=== PATIENT | female | born 1935 | race Caucasian/White ===

== ENCOUNTER 2017-03-08 05:40 | Inpatient (IN) | payer MEDICARE, OTHER ==
[2017-02-23 20:32] LABS: BASOPHILS 0.5 %; BASOPHILS ABSOLUTE 0.03 10/3/uL (0.0-0.16); EOSINOPHILS 4.7 %; HEMOGLOBIN 10.6 g/dL (12.0-16.0); IMMATURE GRANULOCYTES 0.3 %; IMMATURE GRANULOCYTES ABSOLUTE 0.02 10/3/uL (0.0-0.11); LYMPHOCYTES 18.6 %; LYMPHOCYTES ABSOLUTE 1.19 10/3/uL (0.67-4.30); MEAN CORPUS HGB CONC 30.3 g/dL (32.0-36.0); MEAN CORPUSCULAR HEMOGLOB 26.8 pg (26.0-34.0); MEAN CORPUSCULAR VOLUME 88.6 fL (80-100); MEAN PLATELET VOLUME 8.6 fL (9.2-13.0); MONOCYTES 5.9 %; MONOCYTES ABSOLUTE 0.38 10/3/uL (0.21-1.20); NEUTROPHILS ABSOLUTE 4.49 10/3/uL (2.02-8.40); RBC DISTRIBUTION WIDTH 15.4 % (12.0-16.0); RED CELL COUNT 3.95 10/6/uL (4.0-5.6); WHITE BLOOD CELLS 6.4 10/3/uL (4.5-10.5)
[2017-02-23 20:36] LABS: MANUAL DIFF NO %; PLATELET COUNT 302 10/3/uL (150-400)
[2017-02-23 20:38] LABS: ASCORBIC ACID (UR NOT ORDER) NEG (NEG); BILIRUBIN, URINE NEGATIVE (NEG); KETONE, URINE NEGATIVE (NEG); LEUKOCYTE ESTERASE(NOT OR NEG (NEG); WBC (NOT ORDERED) (RFLEX) < 1 (0-5)
[2017-02-23 20:45] LABS: INTERNATIONAL NORMAL RATI 1.8 UNITS (-); PROTIME (NOT ORD) 21.1 SEC (12.0-14.5)
[2017-02-23 20:49] LABS: ALBUMIN 3.2 G/DL (3.5-5.0); CALCIUM, SERUM 8.1 MG/DL (8.5-10.4); CHLORIDE, SERUM 100 MMOL/L (96-112); CO2 (CARBON DIOXIDE) 33 MMOL/L (24-34); CREATININE 1.11 MG/DL (0.55-1.02); GFR AFRICAN AMERICAN 54 ML/MIN (>=60); GFR NON AFRICAN AMERICAN 46 ML/MIN (>=60); GLOBULIN 3.3 G/DL (2.5-4.1); GLUCOSE, SERUM 79 MG/DL (60-99); POTASSIUM, SERUM 3.8 MMOL/L (3.5-5.3); SGOT(AST) 12 U/L (5-40); SGPT(ALT) 12 U/L (5-65); SODIUM, SERUM 141 MMOL/L (135-148); TOTAL BILIRUBIN 0.5 MG/DL (0-1.2); TOTAL PROTEIN 6.5 G/DL (6.0-8.5)
[2017-02-23 20:50] LABS: ALKALINE PHOSPHATASE 132 U/L (45-117); BUN (BLOOD UREA NITROGEN) 15 MG/DL (6-23)
--- NOTE | ~2017-03-08 | OP ---
Record Of Operation [facility] [address] [place]. [address] NAME: MARLENY CALIXTO : 35 STATUS : ADM IN PAT#: [id number] AGE: 82 ADM/REG DATE : 03/08/17 MR#: [id number] REPORT SERV DATE: 03/09/17 DICTATED BY: SUE TRAVIS DATE: 03/09/17 REPORT STATUS : Draft TRANSCRIBED BY: ADDIS DATE: 03/09/17 DATE OF PROCEDURE: 03/08/2017 PREOPERATIVE DIAGNOSIS: Severe bilateral knee degenerative joint disease. POSTOPERATIVE DIAGNOSIS: Severe bilateral knee degenerative joint disease. OPERATION: Bilateral posterior stabilized total knee replacement, cemented. SIDE: Right and left. SIZE: See chart. ANESTHESIA: See chart. ESTIMATED BLOOD LOSS: About 10 mL each knee. TOURNIQUET TIME: Approximately 1 hour and 10 minutes. COMPLICATIONS: None. SPECIMENS: Articular surfaces. PROCEDURE IN DETAIL: The patient was appropriately identified and marked. The operative side agreed with the consent form and it was checked by all members of the surgical team. The patient was taken to the operating room and anesthesia was induced per the anesthesiologist. The patient was carefully transferred to the operating table without incident. The patient received appropriate prophylactic antibiotics and a Cason catheter was placed in the standard sterile technique. The patient was then carefully positioned, padded, prepped and draped in the normal sterile fashion. The operative leg had been appropriately identified and checked by all members of the operating team against the consent form and found to be the correct limb. The patient's lower extremity was then exsanguinated with an Bala wrap and a tourniquet was inflated to 350 mmHg. Sharp dissection was carried out through a straight midline longitudinal incision and electrocautery through the fat. Sharp quad splitting approach was carried out between about the medial 10 percent of the tendon and the lateral 90 percent of the tendon and down around the medial aspect of the patella and then 1 cm medial to the tibial tubercle. The patella was carefully everted and the posterior fat pad was excised and gentle MCL elevation was carried out off the proximal medial tibia subperiosteally. IM guide was placed in the distal femur after using the appropriate drill. The distal femoral cutting guide was held with 2 pins and the distal cut made. Meniscal fragments and the ACL and the PCL were excised with electrocautery, carefully staying anterior to the posterior fat pad. The proximal tibial alignment guide was set appropriately and the proximal tibial cut made. Spacer block verified full extension with excellent mediolateral balance. Sizing guide was used to place 2 drill holes in the distal femur and the four-in-one cutting block was then placed, impacted and checked Record Of Operation [facility] [address] [place]. [address] NAME: MARLENY CALIXTO : 35 STATUS : ADM IN PAT#: [id number] AGE: 82 ADM/REG DATE : 03/08/17 MR#: [id number] REPORT SERV DATE: 03/09/17 DICTATED BY: SUE TRAVIS DATE: 03/09/17 REPORT STATUS : Draft TRANSCRIBED BY: ADDIS DATE: 03/09/17 to be sure it would not notch with an donaldo wing and it was held with 2 pins. The anterior cut, posterior cut, anterior chamfer and posterior chamfer cuts were made. The pins were removed and the block was removed. A posterior release was carried out with a curved 3/4 inch osteotome staying right on the bone posteriorly. The box-cut guide was then placed, impacted and held with 2 pins and a reciprocating saw was used to cut out the box. With the trial components in place, there was excellent medial/lateral balance. The patella was then measured with a caliper, cut first with an oscillating saw and then reamed with a patella reamer. With the trial patella in place, there was excellent patellar tracking. Rotation was marked on the tibia and the tibia prepared with a drill and stamp chisel. All surfaces were then copiously irrigated with pulsatile lavage, carefully dried and then vacuum-mixed cement was pressurized with a cement gun in a doughy phase. The tibial component was placed, impacted and excess cement was removed. The cement was then pressurized in the femur and placed on the posterior runners of the femoral component, which was placed, impacted and excess cement removed and the knee was brought out into extension on a trial spacer. The cement was then pressurized in the patella. Patellar component was then placed, clamped and excess cement was removed. Once all cement was hardened, the knee was taken through range of motion. Further extruded cement was removed with a small osteotome. Then based on the trial inserts, we decided on the actual insert, which was placed in the standard fashion and held with a locking mechanism. The knee was then copiously irrigated and then closed in a layered fashion over a medium Hemovac drain superolaterally with interrupted #1 in the deep fascia, 2-0 subcutaneous and ursula in the skin. The wounds were dressed sterilely and the tourniquet was deflated. After completion of the first knee and discussion with the anesthesiologist, all parameters were acceptable and we decided to proceed with the second knee. Same procedure as that dictated above was carried out on the contralateral knee. The contralateral leg was again appropriately identified and checked by all members of the operating team against the consent form and found to be the correct limb. The patient's lower extremity was then exsanguinated with an Bala wrap and a tourniquet was inflated to 350 mmHg. Sharp dissection was carried out through a straight midline longitudinal incision and electrocautery through the fat. Sharp quad splitting approach was carried out between about the medial 10 percent of the tendon and the lateral 90 percent of the tendon and down around the medial aspect of the patella and then 1 cm medial to the tibial tubercle. The patella was carefully everted and the posterior fat pad was excised and gentle MCL elevation was carried out off the proximal medial tibia subperiosteally. IM guide was placed in the distal femur after using the appropriate drill. The distal femoral cutting guide was held with 2 pins and the distal cut made. Meniscal fragments and the ACL and the PCL were excised with electrocautery, carefully staying anterior to the posterior fat pad. The proximal tibial alignment guide was set appropriately and the proximal tibial cut made. Spacer block verified full extension with excellent mediolateral balance. Sizing guide was used to place 2 drill holes in the distal femur and the four-in-one cutting block was then placed, impacted and checked to be sure it would not notch with an donaldo wing and it was held with 2 pins. The anterior cut, posterior cut, anterior chamfer and posterior chamfer cuts were made. The pins were removed and the block was removed. A posterior release was carried out with a curved 3/4 inch osteotome staying right on the bone posteriorly. The box cut guide was then placed, impacted and held with 2 pins and a reciprocating saw was used to Record Of Operation [address] [place]. [address] NAME: MARLENY CALIXTO: 35 STATUS : ADM IN PAT#: [id number] AGE: 82 ADM/REG DATE : 03/08/17 MR#: [id number] REPORT SERV DATE: 03/09/17 DICTATED BY: SUE TRAVIS DATE: 03/09/17 REPORT STATUS : Draft TRANSCRIBED BY: MODL DATE: 03/09/17 cut out the box. With the trial components in place, there was excellent medial/lateral balance. The patella was then measured with a caliper, cut first with an oscillating saw and then reamed with a patella reamer. With the trial patella in place, there was excellent patellar tracking. Rotation was marked on the tibia and the tibia prepared with a drill and stamp chisel. All surfaces were then copiously irrigated with pulsatile lavage, carefully dried and then vacuum-mixed cement was pressurized with a cement gun in a doughy phase. The tibial component was placed, impacted and excess cement was removed. The cement was then pressurized in the femur and placed on the posterior runners of the femoral component, which was placed, impacted and excess cement removed and the knee was brought out into extension on a trial spacer. The cement was then pressurized in the patella. Patellar component was then placed, clamped and excess cement was removed. Once all cement was hardened, the knee was taken through range of motion. Further extruded cement was removed with a small osteotome. Then based on the trial inserts, we decided on the actual insert, which was placed in the standard fashion and held with a locking mechanism. The knee was then copiously irrigated and then closed in a layered fashion over a medium Hemovac drain superolaterally with interrupted #1 in the deep fascia, 2-0 subcutaneous and ursula in the skin. The wounds were dressed sterilely and the tourniquet was deflated. WTB/MODL Valeria Travis M.D. / [id number] CC: Rei Alberto M.D.
[~2017-03-08 05:40] MED LIST: *UNABLE1; ADVAIR250 INH; APRES25 PO; ATEN25 PO; ATEN50 PO; ATV.5 PO; AUG875 PO; BIOFREEZE TOPICAL; BUM1 PO; C1 PO; C25 PO; CARDCD120 PO; CLARIT10 PO; COUMADIN3 MG PO; COUMADIN4 MG PO; CYANO1000T PO; DUONEB INH; FLEX PO; FLORASTOR250 MG PO; HYDROCHLOROT12.5 MG PO; ISOPTINSR PO; K500 PO; KDUR20 PO; KLOR-CON 1010 MEQ PO; KLOR-CON M1010 MEQ PO; KLOR-CON M2020 MEQ PO; L20 PO; L40 PO; L80 PO; LASIX PO; LEXAPRO10 PO; LIPITOR10 PO; LOP25 PO; LOVENOX1C; MIRALAX POWDER1 PKT PO; MIRAPEX1 MG PO; NEUR100 PO; NEUR300 PO; NEURONTIN; NEXIUM40 PO; NITROSTAT0.3 MG SL; NITROSTAT0.4 MG SL; OTC EYE DROP OPH; OTC PROBIOTIC PO; P20 PO; PCET OR; PROAIR HFA INH; REM15 PO; REMERON30 MG PO; SINGULAIR1 PO; SPIRIVA INH; SPIRO25 PO; TEARS NATURA OPH; TESS PO; ULTRAM50 PO; VIT B-SIX 50 MG50 MG PO; VITAMIN B6 PO; VITAMIN D OTC PO; VOLTAREN1 % TOP; Z100 PO; ZOFRAN4 OR; ZYRTEC ALLGY10 MG PO
[2017-03-08 06:34] LABS: INTERNATIONAL NORMAL RATI 1.3 UNITS (-)
[2017-03-08 06:35] LABS: PROTIME (NOT ORD) 16.2 SEC (12.0-14.5)
[2017-03-08 17:43] LABS: HEMATOCRIT 27.2 % (36.0-48.0); HEMOGLOBIN 8.3 g/dL (12.0-16.0)
[2017-03-09 05:16] LABS: HEMATOCRIT 25.8 % (36.0-48.0)
[2017-03-09 05:18] LABS: INTERNATIONAL NORMAL RATI 1.4 UNITS (-); PROTIME (NOT ORD) 17.4 SEC (12.0-14.5)
[2017-03-09 05:33] LABS: CALCIUM, SERUM 7.6 MG/DL (8.5-10.4); CHLORIDE, SERUM 106 MMOL/L (96-112); CREATININE 0.96 MG/DL (0.55-1.02); GFR AFRICAN AMERICAN 64 ML/MIN (>=60); GFR NON AFRICAN AMERICAN 55 ML/MIN (>=60); POTASSIUM, SERUM 4.5 MMOL/L (3.5-5.3); SODIUM, SERUM 143 MMOL/L (135-148)
[2017-03-09 05:42] LABS: BUN (BLOOD UREA NITROGEN) 23 MG/DL (6-23); CO2 (CARBON DIOXIDE) 27 MMOL/L (24-34); GLUCOSE, SERUM 118 MG/DL (60-99)
[2017-03-10 06:21] LABS: BASOPHILS 0 %; EOSINOPHILS 0.3 %; EOSINOPHILS ABSOLUTE 0.02 10/3/uL (0.0-0.53); HEMATOCRIT 27.9 % (36.0-48.0); HEMOGLOBIN 8.8 g/dL (12.0-16.0); IMMATURE GRANULOCYTES 0.7 %; IMMATURE GRANULOCYTES ABSOLUTE 0.05 10/3/uL (0.0-0.11); LYMPHOCYTES 12.5 %; LYMPHOCYTES ABSOLUTE 0.96 10/3/uL (0.67-4.30); MEAN CORPUS HGB CONC 31.5 g/dL (32.0-36.0); MEAN CORPUSCULAR VOLUME 88.9 fL (80-100); MEAN PLATELET VOLUME 9.1 fL (9.2-13.0); MONOCYTES 8.5 %; MONOCYTES ABSOLUTE 0.65 10/3/uL (0.21-1.20); NEUTROPHILS ABSOLUTE 5.97 10/3/uL (2.02-8.40); RBC DISTRIBUTION WIDTH 16.3 % (12.0-16.0); WHITE BLOOD CELLS 7.7 10/3/uL (4.5-10.5)
[2017-03-10 06:25] LABS: INTERNATIONAL NORMAL RATI 1.8 UNITS (-)
[2017-03-10 06:26] LABS: PROTIME (NOT ORD) 20.8 SEC (12.0-14.5)
[2017-03-10 06:28] LABS: MANUAL DIFF NO %; PLATELET COUNT 164 10/3/uL (150-400); RED CELL COUNT 3.14 10/6/uL (4.0-5.6)
[2017-03-10 06:31] LABS: BUN (BLOOD UREA NITROGEN) 26 MG/DL (6-23); CHLORIDE, SERUM 101 MMOL/L (96-112); CO2 (CARBON DIOXIDE) 31 MMOL/L (24-34); CREATININE 1.03 MG/DL (0.55-1.02); GFR AFRICAN AMERICAN 59 ML/MIN (>=60); GFR NON AFRICAN AMERICAN 51 ML/MIN (>=60); GLUCOSE, SERUM 117 MG/DL (60-99); POTASSIUM, SERUM 4.3 MMOL/L (3.5-5.3); SODIUM, SERUM 140 MMOL/L (135-148)
[2017-03-11 05:28] LABS: INTERNATIONAL NORMAL RATI 1.9 UNITS (-); PROTIME (NOT ORD) 21.8 SEC (12.0-14.5)
[2017-03-11 05:39] LABS: BASOPHILS 0.1 %; BASOPHILS ABSOLUTE 0.01 10/3/uL (0.0-0.16); EOSINOPHILS 7.6 %; EOSINOPHILS ABSOLUTE 0.55 10/3/uL (0.0-0.53); IMMATURE GRANULOCYTES 0.8 %; IMMATURE GRANULOCYTES ABSOLUTE 0.06 10/3/uL (0.0-0.11); LYMPHOCYTES 19.2 %; LYMPHOCYTES ABSOLUTE 1.38 10/3/uL (0.67-4.30); MEAN CORPUSCULAR HEMOGLOB 28.2 pg (26.0-34.0); MEAN CORPUSCULAR VOLUME 90.9 fL (80-100); MEAN PLATELET VOLUME 9.2 fL (9.2-13.0); MONOCYTES 5.7 %; MONOCYTES ABSOLUTE 0.41 10/3/uL (0.21-1.20); NEUTROPHILS 66.6 %; NEUTROPHILS ABSOLUTE 4.78 10/3/uL (2.02-8.40); PLATELET COUNT 186 10/3/uL (150-400); RBC DISTRIBUTION WIDTH 16.6 % (12.0-16.0); RED CELL COUNT 3.19 10/6/uL (4.0-5.6); WHITE BLOOD CELLS 7.2 10/3/uL (4.5-10.5)
[2017-03-11 05:40] LABS: MANUAL DIFF NO %
[2017-03-11 05:50] LABS: CALCIUM, SERUM 7.8 MG/DL (8.5-10.4); CHLORIDE, SERUM 102 MMOL/L (96-112); CO2 (CARBON DIOXIDE) 33 MMOL/L (24-34); CREATININE 1.45 MG/DL (0.55-1.02); GFR AFRICAN AMERICAN 39 ML/MIN (>=60); GFR NON AFRICAN AMERICAN 33 ML/MIN (>=60); GLUCOSE, SERUM 99 MG/DL (60-99); POTASSIUM, SERUM 4.6 MMOL/L (3.5-5.3); SODIUM, SERUM 142 MMOL/L (135-148)
[2017-03-11 05:58] LABS: BUN (BLOOD UREA NITROGEN) 30 MG/DL (6-23)
== END 2017-03-11 14:39 | DRG 462 ==
LOC: SDC/OF 05:40 → PACU 10:46 → 3SO 12:48
PROVIDERS: Specialist
PROC: 0SRC0J9 Replacement of Right Knee Joint with Synthetic Substitute, Cemented, Open Approach (ICD-10-PCS; 2017-03-08)
PROC: 30233N1 Transfusion of Nonautologous Red Blood Cells into Peripheral Vein, Percutaneous Approach (ICD-10-PCS; 2017-03-08)
PROC: 0SRD0J9 Replacement of Left Knee Joint with Synthetic Substitute, Cemented, Open Approach (ICD-10-PCS; principal; 2017-03-08 07:45)
DX: M17.0 Bilateral primary osteoarthritis of knee (principal); D62 Acute posthemorrhagic anemia; I10 Essential (primary) hypertension; E78.5 Hyperlipidemia, unspecified; J45.909 Unspecified asthma, uncomplicated; K21.9 Gastro-esophageal reflux disease without esophagitis; Z86.718 Personal history of other venous thrombosis and embolism; Z79.01 Long term (current) use of anticoagulants; I12.9 Hypertensive chronic kidney disease with stage 1 through stage 4 chronic kidney disease, or unspecified chronic kidney disease; N18.9 Chronic kidney disease, unspecified; G47.33 Obstructive sleep apnea (adult) (pediatric); F41.9 Anxiety disorder, unspecified
CPT/HCPCS: 36415; 71020-PO; 80048; 80053; 81001; 82962; 85014; 85018; 85025; 85610; 86850; 86900; 86901; 86920; 87641; 88305; 88311; 93005; 94640; 97110-GP; 97116-GP; 97162-GP; 97165-GO; A9270-GY; C1776; G8987-CK-GO; G8988-CJ-GO; J0690; J1885; J1940; J2250; J2274; J2370; J2405; J2710; J2795; J3010; J3370; P9016; P9045

== ENCOUNTER 2017-05-06 13:08 | Inpatient (IN) | payer MEDICARE, OTHER ==
--- NOTE | ~2017-05-06 | DS ---
Discharge Summary [place] [id number] [facility] [place]. [address] NAME: MARLENY CALIXTO : 35 STATUS : DIS IN PAT#: [id number] AGE: 82 ADM/REG DATE : 05/06/17 MR#: [id number] REPORT SERV DATE: 05/10/17 DICTATED BY: SAUD CHASE DATE: 05/10/17 REPORT STATUS : Draft TRANSCRIBED BY: MODRissa DATE: 05/10/17 ADMISSION DATE: 05/06/2017 DISCHARGE DATE: 05/10/2017 DISCHARGE DIAGNOSES: Include: 1. Right patellar fracture status post fall, status post repair of said patellar fracture on 05/07/2017. 2. Hypertension. 3. Chronic diastolic heart failure. 4. History of pulmonary embolus and deep vein thrombosis. 5. History of aortic stenosis. 6. History of chronic obstructive pulmonary disease and obstructive sleep apnea, on current CPAP therapy. 7. History of dementia, on Aricept. DISCHARGE MEDICINES: As follows: Flexeril 10 mg twice a day, Cardizem 120 mg at bedtime, Colace 100 mg twice a day, Aricept 5 mg at bedtime, Zantac 300 mg at bedtime, Lasix 40 mg daily, folic acid 1 mg daily, ferrous sulfate 300 mg p.o. twice a day, Neurontin 300 mg at bedtime and 100 mg in the morning, Remeron 7.5 mg at bedtime, Singulair 10 mg daily, MiraLAX one packet daily, potassium chloride 20 mEq p.o. daily, Aldactone 25 mg daily, Coumadin 2 mg daily, Spiriva one capsule inhaled daily, Mylanta p.r.n., Dulcolax 10 mg suppository p.r.n. for constipation, Ativan 0.5 mg twice a day p.r.n. for anxiety, Cocoa 7.5/325 one tablet every four hours p.r.n. for pain, milk of magnesia p.r.n., nitroglycerin 0.4 mg sublingual p.r.n. for chest pain, Zofran 4 mg every four hours p.r.n. for nausea, MiraLAX one packet twice a day p.r.n., and DuoNeb inhaled q.4 hours p.r.n. for shortness of breath, Mirapex 1 mg three tablets two hours before bedtime. HISTORY OF PRESENT ILLNESS: A pleasant 82-year-old white female, who presented after a fall and right knee pain. Please see the initial H and P of Dr. Olga Sapp as the patient admitted to the Hospitalist Service for further evaluation and treatment. CLIENT RELATIONSHIP MANAGER DURING THIS ADMISSION: Include Orthopedic Surgery, Dr. Joao Baker. PROCEDURE AND IMAGING DURING THIS ADMISSION: Include a CT of the pelvis that showed subtle nondisplaced fracture of the right hip. Right knee x-ray confirmed an acute transverse fracture through the bony patella with associated hemorrhagic effusion, but pelvis CT showed no evidence of an occult fracture and then on 05/07/2017, surgical open repair of patellar fracture. EVALUATION IN HOSPITAL COURSE: The patient was initially seen by Dr. Loan Boyd after admission and by Orthopedic Surgery, Dr. Baker who performed the surgery and the patient has recovered well from that. She was seen by Physical therapy, who recommended nursing home facility and discharge for continued rehab. She has done well from a medical standpoint. Continued to use her CPAP during the evening and continued on her home medication regimen. She has been afebrile. Blood pressures have been stable. Lab work has been within normal limits as well other than some expected postoperative anemia. The Discharge Summary [address] [address] NAME: MARLENY CALIXTO : 35 STATUS : DIS IN PAT#: [id number] AGE: 82 ADM/REG DATE : 05/06/17 MR#: [id number] REPORT SERV DATE: 05/10/17 DICTATED BY: SAUD CHASE DATE: 05/10/17 REPORT STATUS : Draft TRANSCRIBED BY: MODRissa DATE: 05/10/17 patient was approved for [facility] and transferred there on 05/10/2017 with the above medication regimen, and she will follow up with her primary care, Dr. 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 Bliss. DICTATED BY: Saud Chase NP [facility] [place]/MODL Saud Chase NP / [id number] CC: MD Meng Gonzalez M.D.
--- NOTE | ~2017-05-06 | OP ---
Record Of Operation [facility] [address] [place]. [address] NAME: MARLENY CALIXTO : 35 STATUS : DIS IN PAT#: [id number] AGE: 82 ADM/REG DATE : 05/06/17 MR#: [id number] REPORT SERV DATE: 05/11/17 DICTATED BY: SUE TRAVIS DATE: 05/10/17 REPORT STATUS : Draft TRANSCRIBED BY: MODL DATE: 05/10/17 DATE OF PROCEDURE: 05/07/2017 PREOPERATIVE DIAGNOSIS: Right periprosthetic patellar fracture. POSTOPERATIVE DIAGNOSIS: Right periprosthetic patellar fracture. PROCEDURE: Open reduction and internal fixation/tendon repair/partial patellectomy. TRAILER SECTIONS ASSEMBLER: See chart. DESCRIPTION OF PROCEDURE: The patient was taken to the operating room and placed supine on the table in normal fashion without incident. General anesthetic was induced per the anesthesiologist. The patient was carefully positioned, padded, prepped, and draped in normal sterile fashion. Right lower extremity exsanguinated and tourniquet was inflated to 350. Sharp dissection was made through the old incision with electrocautery through the fat. Dissection was then down carefully onto the patella. The distal patellar fragments were felt to be too small and too comminuted for repair. Therefore, I debrided most of that back making it more of a patellar tendon reattachment. The patellar component was still overall attached to the proximal fragment. Four legs of #5 FiberWire were left after I wove #2 FiberWires down into the tendon. These four legs were passed through three holes using a drill tip ACL suture passer longitudinally. This gave excellent fixation. They were tied over each other. This was further oversewn with FiberWire. Retinaculum appeared in satisfactory fashion. The wound was irrigated, closed in layered fashion, dressed sterilely. The patient was awakened and taken to the postanesthesia care unit without incident. COMPLICATIONS: None. SPECIMENS: None. ESTIMATED BLOOD LOSS: Trace. WTB/MODL Valeria Travis M.D. / [id number] CC: MD Meng Gonzalez M.D.
--- NOTE | ~2017-05-06 | HP ---
History And Physical [address] [place]. [address] NAME: MARLENY CALIXTO : 35 STATUS : ADM IN PAT#: [id number] AGE: 82 ADM/REG DATE : 05/06/17 MR#: [id number] REPORT SERV DATE: 05/07/17 DICTATED BY: SUE BAKER DATE: 05/07/17 REPORT STATUS : Draft TRANSCRIBED BY: MODRissa DATE: 05/07/17 DATE OF ADMISSION: 05/06/2017 CHIEF COMPLAINT: Right knee pain. HISTORY: An 82-year-old female, status post bilateral total knee arthroplasty several months ago, lost her balance, fell, and fractured her right patella. She denies pain or injury elsewhere. It sounds she fell directly on it in a flexed position. ALLERGIES: NONSTEROIDAL ANTI-INFLAMMATORY AGENTS. MEDICATIONS: See chart. PAST MEDICAL HISTORY: Restless legs syndrome, full dentures, hypercholesterolemia, hypertension, pulmonary embolism, asthma, arthritis, ulcer history, CKD, anxiety. PAST SURGICAL HISTORY: Cholecystectomy, hysterectomy, bilateral cataracts, "bone spurs" in right ankle, colonoscopy, fatty tumor back in 1999, bilateral total knees in February this year. SOCIAL HISTORY: 35 years of cigarettes, but she quit. No alcohol or illicit drug use. FAMILY HISTORY: No anesthetic complications. REVIEW OF SYSTEMS: As above. PHYSICAL EXAMINATION: GENERAL: She is alert and oriented x3, in no apparent distress. HEENT: Atraumatic, normocephalic. NECK: Supple. CHEST: Symmetric, nontender. LUNGS: Per AA evaluation. CV: Regular. ABDOMEN: Soft. No mass. EXTREMITIES: Both upper extremities and left lower extremity, no acute trauma. Minimal soreness left shoulder. Right knee with the anterior knee swelling and pain, and she is unable to resist gravity and unable to hold a straight leg raise. X-RAYS: With transfers, inferior pole, right patella fracture. ASSESSMENT: Right patella fracture, inferior pole. PLAN: ORIF versus revision versus partial patellectomy. We discussed risks, benefits, etc. She wishes to proceed. History And Physical [address] [place]. [address] NAME: MARLENY CALIXTO : 35 STATUS : ADM IN PAT#: [id number] AGE: 82 ADM/REG DATE : 05/06/17 MR#: [id number] REPORT SERV DATE: 05/07/17 DICTATED BY: SUE BAKER DATE: 05/07/17 REPORT STATUS : Draft TRANSCRIBED BY: MODL DATE: 05/07/17 WTB/MODL Valeria Baker M.D. / [id number] CC: Rei Garcia M.D.
--- NOTE | ~2017-05-06 | HP ---
History And Physical [facility] [address] [place]. [address] NAME: MARLENY CALIXTO : 35 STATUS : ADM Desiree PAT#: [id number] AGE: 82 ADM/REG DATE : 05/06/17 MR#: [id number] REPORT SERV DATE: 05/06/17 DICTATED BY: OLGA BABIN DATE: 05/06/17 REPORT STATUS : Draft TRANSCRIBED BY: ADDIS DATE: 05/06/17 DATE OF ADMISSION: 05/06/2017 CHIEF COMPLAINT: Status post accidental fall with right knee pain and right hip pain today. This is a very pleasant 82 years old female. She does have a history of hypertension, history of diastolic CHF, history of aortic stenosis, morbidly obese, anemia of chronic disease, history of obstructive sleep apnea on CPAP, prior history of DVT and PE on chronic anticoagulation, history of GERD, depression, anxiety, restless legs syndrome, that she has had recently in February bilateral knee replacement performed by Dr. Baker. She was at home using her walker. She woke up this morning, she went to prepare her breakfast and after that because she has some unsteady gait, she used her walker, she put her hand on her walker and accidentally she lost her balance and she fell on the right hip and the right knee. In the meantime, her caregiver was in her way into the patient's room, actually at that time, her neighbors were able to put her in a chair but she was not able to walk after that and she was complaining of significant right knee pain as well as right hip pain. As a result, the patient has been brought to [facility]. She says she has not had any presyncopal or syncopal episodes. She was aware of what was happening. She did not have any chest pain or increasing shortness of breath. No PND. No orthopnea. She did not have any nausea or vomiting. No diarrhea or constipation. She is having chronic lymphedema in bilateral lower extremities. She has been undergoing physical therapy. The patient has been evaluated in the emergency room and after initial evaluation, Hospitalist Service has been asked for admission, further evaluation, and treatment. PAST MEDICAL HISTORY: Significant for hypertension, diastolic dysfunction with possible congestive heart failure, probable aortic stenosis, degenerative joint disease, osteoarthritis, anemia of chronic disease, morbid obesity, history of diverticulitis, history of obstructive sleep apnea on CPAP, history of COPD, asthma on prior DVT and PE, history of hyperlipidemia, depression, and anxiety, history of GERD, and history of restless legs syndrome. PAST SURGICAL HISTORY: Includes cholecystectomy, hysterectomy, and bilateral knee replacement. ALLERGIES: SHE IS ALLERGIC TO NSAIDS AND ALSO HYDROCODONE. HOME MEDICATIONS: Home medications include 1. Cardizem. 2. Cyclobenzaprine. 3. Colace. 4. Aricept. 5. Lexapro. 6. Lasix. 7. Gabapentin. 8. Lorazepam. 9. Montelukast. History And Physical [address] [address] NAME: MARLENY CALIXTO : 35 STATUS : ADM Desiree PAT#: [id number] AGE: 82 ADM/REG DATE : 05/06/17 MR#: [id number] REPORT SERV DATE: 05/06/17 DICTATED BY: OLGA BABIN DATE: 05/06/17 REPORT STATUS : Draft TRANSCRIBED BY: ADDIS DATE: 05/06/17 10.Mirtazapine. 11.Multivitamin. 12.MiraLAX. 13.Potassium. 14.Spironolactone. 15.Spiriva. 16.Zofran. 17.Albuterol. 18.Mucinex. 19.Coumadin. FAMILY HISTORY: Significant for hypertension and cancer. SOCIAL HISTORY: Lives with the family. No tobacco. No alcohol. No IV drugs. REVIEW OF SYSTEMS: 14-point review of systems has been obtained and pertinent positives has been listed into the history of present illness, otherwise, negative except those underlying above. PHYSICAL EXAMINATION: OBJECTIVE: VITAL SIGNS: The patient currently is afebrile. Blood pressure 145/69, heart rate 72, respiratory rate 16, and saturating 98% on room air. GENERAL: She is a very pleasant, well-developed, well-nourished female, somewhat anxious, in no acute distress. She is alert and oriented x3. Nonfocal. She follows commands appropriately. HEENT: Shows pupils equal, round, and reactive to light. Extraocular movements intact. NECK: No JVD. No lymphadenopathy. No thyromegaly appreciated. CHEST: Eval shows bilateral air entry. Clear anteroposterior. No wheezes, crackles, or rhonchi appreciated. CARDIOVASCULAR: She has regular rate and rhythm. S1, S2 positive. No S3, no S4. There is a 2/6 systolic murmur of the right upper on the left upper intercostal space and a mitral regurgitation murmur at the apex. ABDOMEN: Soft, obese. Nontender. No guarding. No rebound. EXTREMITIES: No clubbing or cyanosis. Mild pedal edema. NEUROLOGIC: She is alert and oriented x3. Nonfocal. She does follow commands appropriately. Gait could not be assessed. LABORATORY DATA: Labs from today include sodium of 141, potassium 4.3, chloride 106, CO2 of 29, BUN 18, creatinine 1.01, glucose is 97, and calcium is 8. Her total protein is 6.4, albumin 2.7, globulin 3.7, albumin to globulin ratio 0.7, her total bilirubin is 0.6, alkaline phosphatase 108, ALT 11, and AST 24. Her white count is 5.5, hemoglobin 10, hematocrit 32.5, and platelets are 193. UA has been negative and there is an x-ray of the right knee which has shown acute transverse fracture through the bony patella with associated nonhemorrhagic effusion as well as there are some subtle changes on the right hip; recommendation for a CT scan. ASSESSMENT AND PLAN: History And Physical [address] [address] NAME: MARLENY CALIXTO : 35 STATUS : ADM Desiree PAT#: [id number] AGE: 82 ADM/REG DATE : 05/06/17 MR#: [id number] REPORT SERV DATE: 05/06/17 DICTATED BY: OLGA BABIN DATE: 05/06/17 REPORT STATUS : Draft TRANSCRIBED BY: MODRissa DATE: 05/06/17 1. This is a very pleasant 82 years old female status post fall with right knee patella fracture. 2. Questionable right hip fracture. 3. History of chronic obstructive pulmonary disease. 4. Obstructive sleep apnea, on CPAP. 5. Diastolic dysfunction. 6. Chronic lymphedema. 7. History of DVT, PE on Coumadin anticoagulation. 8. Hypertension. 9. Obesity. PLAN: 1. The patient is going to be admitted to Hospitalist Service. We are going to keep her bedrest. We are going to get a CAT scan of the pelvis and the right hip for better delineation, supportive care, symptomatic treatment. Consult Dr. Baker, Orthopedics, for further recommendation and pain control as well. We will check EKG. We will check a chest x-ray, portable as well. 2. History of hypertension. Continue her home medications. Provide p.r.n. hydralazine as needed. 3. COPD. We will provide nebulizer treatment. 4. Obstructive sleep apnea. Continue her CPAP. 5. History of DVT/PE. We are going to check a PT and INR and we are going to hold her Coumadin. We are going to provide reasonable pain and nausea control as well as GI and DVT prophylaxis with SCDs. That has been discussed extensively with the patient as well as the patient's son. All the questions have been answered in full. Further workup and recommendation pending above. It is worthwhile to note that the patient is going to be followed up by Hospitalist Service. CF/MODL Olga Babin M.D. / [id number] CC: Rei Garcia M.D.
[2017-05-06 11:46] LABS: BASOPHILS 0.2 %; BASOPHILS ABSOLUTE 0.01 10/3/uL (0.0-0.16); EOSINOPHILS 4.9 %; EOSINOPHILS ABSOLUTE 0.27 10/3/uL (0.0-0.53); ER CBC TAT 0 Hrs 08 Mins; IMMATURE GRANULOCYTES 0.2 %; IMMATURE GRANULOCYTES ABSOLUTE 0.01 10/3/uL (0.0-0.11); LYMPHOCYTES 20.3 %; LYMPHOCYTES ABSOLUTE 1.12 10/3/uL (0.67-4.30); MEAN CORPUS HGB CONC 30.8 g/dL (32.0-36.0); MEAN CORPUSCULAR HEMOGLOB 26.5 pg (26.0-34.0); MEAN PLATELET VOLUME 8.7 fL (9.2-13.0); MONOCYTES 8.3 %; MONOCYTES ABSOLUTE 0.46 10/3/uL (0.21-1.20); NEUTROPHILS 66.1 %; NEUTROPHILS ABSOLUTE 3.66 10/3/uL (2.02-8.40); RBC DISTRIBUTION WIDTH 16.2 % (12.0-16.0); RED CELL COUNT 3.78 10/6/uL (4.0-5.6); WHITE BLOOD CELLS 5.5 10/3/uL (4.5-10.5)
[2017-05-06 11:47] LABS: HEMATOCRIT 32.5 % (36.0-48.0); MANUAL DIFF NO %; PLATELET COUNT 193 10/3/uL (150-400)
[2017-05-06 12:02] LABS: A/G RATIO 0.7 (0.7-1.9); ALBUMIN 2.7 G/DL (3.5-5.0); ALKALINE PHOSPHATASE 108 U/L (45-117); BUN (BLOOD UREA NITROGEN) 18 MG/DL (6-23); CHLORIDE, SERUM 106 MMOL/L (96-112); CO2 (CARBON DIOXIDE) 29 MMOL/L (24-34); CREATININE 1.01 MG/DL (0.55-1.02); GFR AFRICAN AMERICAN 60 ML/MIN (>=60); GFR NON AFRICAN AMERICAN 52 ML/MIN (>=60); GLOBULIN 3.7 G/DL (2.5-4.1); GLUCOSE, SERUM 97 MG/DL (60-99); POTASSIUM, SERUM 4.3 MMOL/L (3.5-5.3); SGOT(AST) 24 U/L (5-40); SGPT(ALT) 11 U/L (5-65); SODIUM, SERUM 141 MMOL/L (135-148); TOTAL BILIRUBIN 0.6 MG/DL (0-1.2); TOTAL PROTEIN 6.4 G/DL (6.0-8.5)
[2017-05-06 12:55] LABS: ASCORBIC ACID (UR NOT ORDER) NEG (NEG); BILIRUBIN, URINE NEGATIVE (NEG); ER URINALYSIS TAT 0 Hrs 11 Mins; KETONE, URINE NEGATIVE (NEG); LEUKOCYTE ESTERASE(NOT OR NEG (NEG); NITRITE (URINE) NEG (NEG); WBC (NOT ORDERED) (RFLEX) < 1 (0-5)
[2017-05-06] MEDS ORDERED: DSS PO (13:15)
[2017-05-06] MEDS ORDERED: ARICEPT10 PO (13:16)
[2017-05-06] MEDS ORDERED: MIRAPEX1 MG (13:18)
[2017-05-06] MEDS ORDERED: SPIRIVA INH (13:22)
[2017-05-06] MEDS ORDERED: MIRALAX POWDER1 PKT PO (13:28)
[2017-05-06] MEDS ORDERED: ZANTAC300 MG PO (13:30)
[2017-05-06 16:12] LABS: PARTIAL THROMBO TIME 38.8 SEC (22.5-37.2)
[2017-05-06 16:18] LABS: INTERNATIONAL NORMAL RATI 2.1 UNITS (-); PROTIME (NOT ORD) 23.7 SEC (12.0-14.5)
[2017-05-06 16:31] LABS: FREE T4 1.13 NG/DL (0.76-1.46); PHOSPHORUS, SERUM 2.8 MG/DL (2.5-4.5); TROPONIN I <0.02 NG/ML (<0.05)
[2017-05-06 16:41] LABS: B NATRIURETIC PEPTIDE (BNP) 260.6 PG/ML (< 100.0)
[2017-05-06 22:02] LABS: GLYCOHEMOGLOBIN (HbA1c) 5.2 % (4.7-6.1)
[2017-05-07 07:08] LABS: BASOPHILS 0.2 %; BASOPHILS ABSOLUTE 0.01 10/3/uL (0.0-0.16); EOSINOPHILS 7.7 %; EOSINOPHILS ABSOLUTE 0.36 10/3/uL (0.0-0.53); HEMATOCRIT 31.4 % (36.0-48.0); HEMOGLOBIN 9.6 g/dL (12.0-16.0); LYMPHOCYTES 30.5 %; LYMPHOCYTES ABSOLUTE 1.43 10/3/uL (0.67-4.30); MEAN CORPUS HGB CONC 30.6 g/dL (32.0-36.0); MEAN CORPUSCULAR HEMOGLOB 26.7 pg (26.0-34.0); MEAN CORPUSCULAR VOLUME 87.2 fL (80-100); MEAN PLATELET VOLUME 8.8 fL (9.2-13.0); MONOCYTES 5.8 %; MONOCYTES ABSOLUTE 0.27 10/3/uL (0.21-1.20); NEUTROPHILS 55.8 %; NEUTROPHILS ABSOLUTE 2.62 10/3/uL (2.02-8.40); PLATELET COUNT 185 10/3/uL (150-400); RBC DISTRIBUTION WIDTH 16.1 % (12.0-16.0); WHITE BLOOD CELLS 4.7 10/3/uL (4.5-10.5)
[2017-05-07 07:12] LABS: MANUAL DIFF NO %
[2017-05-07 07:13] LABS: INTERNATIONAL NORMAL RATI 2.3 UNITS (-); PROTIME (NOT ORD) 24.9 SEC (12.0-14.5)
[2017-05-07 07:28] LABS: A/G RATIO 0.7 (0.7-1.9); ALBUMIN 2.5 G/DL (3.5-5.0); ALKALINE PHOSPHATASE 102 U/L (45-117); CALCIUM, SERUM 7.8 MG/DL (8.5-10.4); CHLORIDE, SERUM 108 MMOL/L (96-112); CO2 (CARBON DIOXIDE) 26 MMOL/L (24-34); CREATININE 0.83 MG/DL (0.55-1.02); GFR AFRICAN AMERICAN 76 ML/MIN (>=60); GFR NON AFRICAN AMERICAN 66 ML/MIN (>=60); GLOBULIN 3.4 G/DL (2.5-4.1); GLUCOSE, SERUM 83 MG/DL (60-99); POTASSIUM, SERUM 4.2 MMOL/L (3.5-5.3); SGOT(AST) 15 U/L (5-40); SGPT(ALT) 10 U/L (5-65); SODIUM, SERUM 141 MMOL/L (135-148); TOTAL BILIRUBIN 0.7 MG/DL (0-1.2); TOTAL PROTEIN 5.9 G/DL (6.0-8.5)
[2017-05-07 07:29] LABS: BUN (BLOOD UREA NITROGEN) 12 MG/DL (6-23)
[2017-05-07 16:15] LABS: BUN (BLOOD UREA NITROGEN) 14 MG/DL (6-23); CHLORIDE, SERUM 106 MMOL/L (96-112); CO2 (CARBON DIOXIDE) 31 MMOL/L (24-34); CREATININE 1.05 MG/DL (0.55-1.02); GFR AFRICAN AMERICAN 57 ML/MIN (>=60); GFR NON AFRICAN AMERICAN 49 ML/MIN (>=60); GLUCOSE, SERUM 115 MG/DL (60-99); POTASSIUM, SERUM 5.1 MMOL/L (3.5-5.3); SODIUM, SERUM 138 MMOL/L (135-148)
[2017-05-08 07:06] LABS: HEMATOCRIT 32.2 % (36.0-48.0); HEMOGLOBIN 9.8 g/dL (12.0-16.0)
[2017-05-08 07:15] LABS: INTERNATIONAL NORMAL RATI 2.3 UNITS (-); PROTIME (NOT ORD) 24.8 SEC (12.0-14.5)
[2017-05-08 07:20] LABS: BUN (BLOOD UREA NITROGEN) 15 MG/DL (6-23); CALCIUM, SERUM 8.4 MG/DL (8.5-10.4); CHLORIDE, SERUM 104 MMOL/L (96-112); CO2 (CARBON DIOXIDE) 29 MMOL/L (24-34); CREATININE 0.94 MG/DL (0.55-1.02); GFR AFRICAN AMERICAN 65 ML/MIN (>=60); GFR NON AFRICAN AMERICAN 56 ML/MIN (>=60); GLUCOSE, SERUM 135 MG/DL (60-99); POTASSIUM, SERUM 4.8 MMOL/L (3.5-5.3); SODIUM, SERUM 138 MMOL/L (135-148)
[2017-05-09 05:13] LABS: HEMATOCRIT 32.5 % (36.0-48.0); HEMOGLOBIN 10.1 g/dL (12.0-16.0)
[2017-05-09 05:17] LABS: INTERNATIONAL NORMAL RATI 1.9 UNITS (-); PROTIME (NOT ORD) 21.9 SEC (12.0-14.5)
[2017-05-09 06:30] LABS: CALCIUM, SERUM 9.2 MG/DL (8.5-10.4); CHLORIDE, SERUM 98 MMOL/L (96-112); CREATININE 1.07 MG/DL (0.55-1.02); GFR AFRICAN AMERICAN 56 ML/MIN (>=60); GFR NON AFRICAN AMERICAN 48 ML/MIN (>=60); GLUCOSE, SERUM 151 MG/DL (60-99); POTASSIUM, SERUM 4.5 MMOL/L (3.5-5.3); SODIUM, SERUM 138 MMOL/L (135-148)
[2017-05-09 06:33] LABS: BUN (BLOOD UREA NITROGEN) 24 MG/DL (6-23); CO2 (CARBON DIOXIDE) 35 MMOL/L (24-34)
[2017-05-10 07:10] LABS: INTERNATIONAL NORMAL RATI 1.5 UNITS (-)
[2017-05-10 07:11] LABS: PROTIME (NOT ORD) 17.7 SEC (12.0-14.5)
[2017-05-10 07:18] LABS: HEMOGLOBIN 11.9 g/dL (12.0-16.0)
[2017-05-10 07:19] LABS: CALCIUM, SERUM 9.7 MG/DL (8.5-10.4); CHLORIDE, SERUM 97 MMOL/L (96-112); CO2 (CARBON DIOXIDE) 36 MMOL/L (24-34); CREATININE 1.14 MG/DL (0.55-1.02); GFR AFRICAN AMERICAN 52 ML/MIN (>=60); GFR NON AFRICAN AMERICAN 45 ML/MIN (>=60); HEMATOCRIT 38.8 % (36.0-48.0); POTASSIUM, SERUM 4.4 MMOL/L (3.5-5.3); SODIUM, SERUM 139 MMOL/L (135-148)
[2017-05-10 07:20] LABS: BUN (BLOOD UREA NITROGEN) 31 MG/DL (6-23); GLUCOSE, SERUM 91 MG/DL (60-99)
== END 2017-05-10 17:59 | DRG 516 ==
LOC: ER 13:08 → 2SO 13:22
PROVIDERS: Hospitalist; Internal Medicine; Physician Assistant; Specialist
PROC: 0QSD04Z Reposition Right Patella with Internal Fixation Device, Open Approach (ICD-10-PCS; principal; 2017-05-06)
DX: S82.031A Displaced transverse fracture of right patella, initial encounter for closed fracture (principal); I50.32 Chronic diastolic (congestive) heart failure; I13.0 Hypertensive heart and chronic kidney disease with heart failure and stage 1 through stage 4 chronic kidney disease, or unspecified chronic kidney disease; Z99.81 Dependence on supplemental oxygen; W18.30XA Fall on same level, unspecified, initial encounter; G25.81 Restless legs syndrome; E78.00 Pure hypercholesterolemia, unspecified; M19.90 Unspecified osteoarthritis, unspecified site; N18.9 Chronic kidney disease, unspecified; F41.9 Anxiety disorder, unspecified; Z96.653 Presence of artificial knee joint, bilateral; F32.9 Major depressive disorder, single episode, unspecified; E66.01 Morbid (severe) obesity due to excess calories; J44.9 Chronic obstructive pulmonary disease, unspecified; E78.5 Hyperlipidemia, unspecified; N88.2 Stricture and stenosis of cervix uteri; G62.9 Polyneuropathy, unspecified; D63.8 Anemia in other chronic diseases classified elsewhere; G47.33 Obstructive sleep apnea (adult) (pediatric); I35.9 Nonrheumatic aortic valve disorder, unspecified; K21.9 Gastro-esophageal reflux disease without esophagitis; Z86.718 Personal history of other venous thrombosis and embolism; Z79.01 Long term (current) use of anticoagulants; Z86.711 Personal history of pulmonary embolism; Z88.5 Allergy status to narcotic agent; Z88.8 Allergy status to other drugs, medicaments and biological substances; Z98.890 Other specified postprocedural states; Z87.891 Personal history of nicotine dependence
CPT/HCPCS: 71010; 72192; 73502-RT; 73560-RT; 80048; 80053; 81001; 83036; 83615; 83735; 83880; 84100; 84439; 84443; 84484; 85014; 85018; 85025; 85610; 85730; 93005; 97116-GP; 97161-GP; 97530-GP; 99285; A9270-GY; C1713; G8978-CK-GP; G8979-CK-GP; G8980-CK-GP; J0690; J2250; J2270; J2370; J2405; J2795; J2800; J3010; J3260; J3370